=== PATIENT | female | born 1935 | race Caucasian/White ===

== ENCOUNTER 2022-12-24 10:19 | Emergency (ER) | payer MEDICARE, SELFPAY ==
--- NOTE | ~2022-12-24 | XR_ITS ---
XR finger 5th LT min 2V DATE: 12/24/2022 10:54 INDICATION: Pain and redness and fifth proximal interphalangeal joint. Possible bug bite TECHNIQUE: 3 views COMPARISON: 03/30/2007 left fifth digit FINDINGS: Old avulsion fracture deformity at the anterior base of the middle phalanx. Osteopenia. No recent fracture or dislocation, periosteal reaction or bone destruction is detected. No radiopaque soft tissue foreign body or subcutaneous emphysema. IMPRESSION: Old healed fracture deformity of the anterior base of middle phalanx Osteopenia Reviewed, dictated and finalized at location A. IMPRESSION: Old healed fracture deformity of the anterior base of middle phalan x Osteopenia
[2022-12-24 10:32] VITALS: BP 192/64; PULSE 69; RESP 17; TEMP 37.2; O2SAT 99
--- NOTE | 2022-12-24 12:02 | ED.GENADULT ---
HPI - General Adult General Chief complaint: Skin/Abscess/Foreign Body Stated complaint: insect bite Time Seen by Provider: 12/24/22 10:27 History of Present Illness HPI narrative: Patient is an 87-year-old female who presents ER with pain to the left finger. Located over the PIP on the dorsal aspect. Reports she was fluffing up some tavarez that were not flowerpot. She then had a sudden onset pain to her finger. She is unsure whether she could have been bitten or stung by an insect. She did not see any insects or other animals. She will afterwards she became hot and flushed. She felt lightheaded and dizzy. Denies any chest pain or chest pressure. They became concerned that she may be having a allergic reaction of some type. She did take some Benadryl prior to arrival here. No itching to the affected digit. No drainage. She has full range of motion. Related Data Allergies Allergy/AdvReac Type Severity Reaction Status Date / Time Sulfa (Sulfonamide Allergy Rash Verified 12/24/22 10:34 Antibiotics) Review of Systems Review of Systems: All systems reviewed & are unremarkable except as noted in HPI and below Constitutional: Constitutional: Denies chills and Denies fever(s) Comments: hot/flusehd Musculoskeletal: Musculoskeletal: Denies myalgias, Reports arthralgias and Reports joint swelling Integumentary/Breasts: Skin/Breast: Denies pruritus, Reports erythema, Denies rash and Denies skin ulcer Neurologic: Reports dizziness, Denies syncope, Denies focal weakness and Denies numbness PMFSH Past Medical History Medical History (Updated 12/24/22 @ 12:08 by Shon Light MD) Afib Hypertension Exam Narrative: GENERAL: Well-appearing, well-nourished, and in no acute distress. HEAD: Normocephalic, atraumatic. ENT: Mucous membranes moist. TMs normal bilaterally. CHEST: Clear to auscultation. No respiratory distress. HEART: Regular rate and rhythm. Normal peripheral pulses. EXTREMITIES: Normal range of motion. Very slight redness to the left fifth digit at the PIP with some edema compared to the right hand. No lymphangitic streaking. No pustules or vesicles. SKIN: Warm, dry, no rash. NEURO: Alert and oriented x3. PSYCH: Normal mood and affect. Course Course Emergency Course: Patient resting comfortably. Redness is not spreading. She has normal range of motion. Suspect bite or sting from and stopped with local irritation. Leg antibiotics not felt to be indicated in this situation. Patient has been verbalized understanding. Also suspect patient may have had an anxiety attack related to the pain and discomfort of the initial injury. Vital Signs Vital signs: Vital Signs Temperature 99.0 F 12/24/22 10:32 Pulse Rate 69 12/24/22 10:32 Respiratory Rate 17 12/24/22 10:32 Blood Pressure 192/64 H 12/24/22 10:32 Pulse Oximetry 99 12/24/22 10:32 Oxygen Delivery Room Air 12/24/22 10:32 Temperature 99.0 F 12/24/22 10:32 Pulse Rate 69 12/24/22 10:32 Respiratory Rate 17 12/24/22 10:32 Blood Pressure 192/64 H 12/24/22 10:32 Pulse Oximetry 99 12/24/22 10:32 Oxygen Delivery Room Air 12/24/22 10:32 Medical Decision Making Vital Signs Vital Signs: Vital Signs Temperature 99.0 F 12/24/22 10:32 Pulse Rate 69 12/24/22 10:32 Respiratory Rate 17 12/24/22 10:32 Blood Pressure 192/64 H 12/24/22 10:32 Pulse Oximetry 99 12/24/22 10:32 Oxygen Delivery Room Air 12/24/22 10:32 Temperature 99.0 F 12/24/22 10:32 Pulse Rate 69 12/24/22 10:32 Respiratory Rate 17 12/24/22 10:32 Blood Pressure 192/64 H 12/24/22 10:32 Pulse Oximetry 99 12/24/22 10:32 Oxygen Delivery Room Air 12/24/22 10:32 Imaging Data Radiologist's impression: ITS Impressions Finger X-Ray 12/24/22 10:57 IMPRESSION: Old healed fracture deformity of the anterior base of middle phalanx Osteopenia Discharge Plan Discharge Cli
== END 2022-12-24 12:17 | disposition home or self-care (01) ==
PROVIDERS: Emergency Provider Emergency Medicine; PCP Internal Medicine
DX: M79.645 Pain in left finger(s) (principal); I48.91 Unspecified atrial fibrillation; I10 Essential (primary) hypertension
CPT/HCPCS: 73140; 99283